=== PATIENT | male | born 1980 | race African-American/Black ===

== ENCOUNTER 2018-04-01 11:02 | Observation (INO) | payer BC ==
[2018-04-01 11:31] LABS: Absolute Lymphocytes (CBC) 1.5 K/uL (0.7-4.9); Absolute Monocytes 0.9 K/uL (0.1-1.3); Absolute Neutrophil 4.6 K/uL (1.8-8.0); Basophils % 0.9 % (0-1.3); Eosinophils % 10.5 % (0-4.4); Hematocrit 45.9 % (39.6-49.0); Lymphocytes % 19.6 % (15.3-44.8); MCV 92.1 fL (80-100); MPV 8.3 fL (7.6-11.3); Monocytes % 10.8 % (3.3-12.3); RBC Red Blood Cell Count 4.99 M/uL (4.33-5.43)
[2018-04-01 11:53] LABS: BUN Blood Urea Nitrogen 9 mg/dL (7-18); Bicarbonate 27 mmol/L (21-32); CKMB Creatine Kinase MB 3.7 ng/mL (0.3-3.6); Creatine Phosphokinase 418 U/L (39-308); Glucose Level 105 mg/dL (74-106); Magnesium 2.4 mg/dL (1.8-2.4); NT PRO-BNP 19 pg/mL (<125); Potassium 3.8 mmol/L (3.5-5.1); Sodium Level 140 mmol/L (136-145); Troponin (Emerg Dept Use Only) < 0.02 ng/mL (0.0-0.045)
[2018-04-01] MEDS ORDERED: MORPHINE 4 MG/ML SYR ONE (12:06)
[2018-04-01] MEDS ORDERED: ONDANSETRON 4 MG/2 ML VIAL ONE (12:06)
--- NOTE | 2018-04-01 12:06 | RAD REPORT ---
EXAM DESCRIPTION: Jarrod Single View04/01/2018 11:39 am CLINICAL HISTORY: PALPITATIONS COMPARISON: none FINDINGS: The lungs appear clear of acute infiltrate. The heart is normal size IMPRESSION: No acute abnormalities displayed
[2018-04-01 12:40] LABS: Protime INR 1.02
--- NOTE | 2018-04-01 12:45 | EDPHYS ---
Physician Documentation [facility] Name: Willie Cook Age: 37 yrs Sex: Male : 1980 Arrival Date: 04/01/2018 Time: 11:04 Bed 2 Private MD: ED Physician Kennedy Ortiz HPI: 04/01 12:21 This 37 yrs old Black Male presents to ER via EMS with complaints of Palpitations. kb 12:21 The patient presents with a history of heart racing. Context: The symptoms occur at kb rest. Onset: The symptoms/episode began/occurred 30 minute(s) ago. Duration: The patient or guardian reports a single episode. Modifying factors: The symptoms are aggravated by nothing. The symptoms are alleviated by nothing. Associated signs and symptoms: Pertinent positives: SOB, Pertinent negatives: anxiety, chest pain, cough, fever, lightheadedness, nausea, syncope, near-syncope, unusual stressors, vertigo, vomiting. Severity of symptoms: At their worst the symptoms were moderate in the emergency department the symptoms have improved. The patient has not experienced similar symptoms in the past. The patient has not recently seen a physician. Historical: - Allergies: 11:06 No Known Allergies; ss - Home Meds: 11:06 None [Active]; ss - PMHx: 11:06 None; ss - PSHx: 11:06 None; ss - Immunization history:: Adult Immunizations up to date. - Social history:: Smoking status: Patient/guardian denies using tobacco. - Ebola Screening: : Patient denies exposure to infectious person Patient denies travel to an Ebola-affected area in the 21 days before illness onset. ROS: 12:17 Constitutional: Negative for fever, chills, and weight loss, Eyes: Negative for injury, kb pain, redness, and discharge, ENT: Negative for injury, pain, and discharge, Neck: Negative for injury, pain, and swelling, Abdomen/GI: Negative for abdominal pain, nausea, vomiting, diarrhea, and constipation, Back: Negative for injury and pain, : Negative for injury, bleeding, discharge, and swelling, MS/Extremity: Negative for injury and deformity, Skin: Negative for injury, rash, and discoloration, Neuro: Negative for headache, weakness, numbness, tingling, and seizure. 12:17 Cardiovascular: Positive for palpitations, Negative for chest pain, edema, orthopnea, paroxysmal nocturnal dyspnea. 12:17 Respiratory: Positive for shortness of breath, Negative for cough, dyspnea on exertion, hemoptysis, orthopnea, pleurisy, sputum production, wheezing. Exam: 12:21 Constitutional: This is a well developed, well nourished patient who is awake, alert, kb and in no acute distress. Head/Face: Normocephalic, atraumatic. Eyes: Pupils equal round and reactive to light, extra-ocular motions intact. Lids and lashes normal. Conjunctiva and sclera are non-icteric and not injected. Cornea within normal limits. Periorbital areas with no swelling, redness, or edema. ENT: Nares patent. No nasal discharge, no septal abnormalities noted. Tympanic membranes are normal and external auditory canals are clear. Oropharynx with no redness, swelling, or masses, exudates, or evidence of obstruction, uvula midline. Mucous membranes moist. Neck: Trachea midline, no thyromegaly or masses palpated, and no cervical lymphadenopathy. Supple, full range of motion without nuchal rigidity, or vertebral point tenderness. No Meningismus. Chest/axilla: Normal chest wall appearance and motion. Nontender with no deformity. No lesions are appreciated. Cardiovascular: Regular rate and rhythm with a normal S1 and S2. No gallops, murmurs, or rubs. Normal PMI, no JVD. No pulse deficits. Respiratory: Lungs have equal breath sounds bilaterally, clear to auscultation and percussion. No rales, rhonchi or wheezes noted. No increased work of breathing, no retractions or nasal flaring. Abdomen/GI: Soft, non-tender, with normal bowel sounds. No distension or tympany. No guarding or rebound. No evidence of tenderness throughout. Skin: Warm, dry with normal turgor. Normal color with no rashes, no lesions, and no evidence of cellulitis. MS/ Extremity: Pulses equal, no cyanosis. Neurovascular intact. Full, normal range of motion. Neuro: Awake and alert, GCS 15, oriented to person, place, time, and situation. Cranial nerves II-XII grossly intact. Motor strength 5/5 in all extremities. Sensory grossly intact. Cerebellar exam normal. Normal gait. Vital Signs: 11:06 BP 149 / 84; Pulse 90; Resp 16; Pulse Ox 100% on R/A; Weight 74.84 kg; Height 6 ft. 1 ss in. (185.42 cm); Pain 0/10; 12:07 BP 150 / 83; Pulse 94; Resp 16; Pulse Ox 100% on R/A; la1 12:27 BP 135 / 83 Supine; Pulse 90; jb1 12:27 BP 140 / 77 Sitting; Pulse 95; jb1 12:27 BP 144 / 90 Standing; Pulse 100; jb1 12:55 BP 137 / 83; Pulse 77; Resp 16; Pulse Ox 100% on R/A; la1 13:28 BP 138 / 71; Pulse 83; Resp 16; Pulse Ox 100% on R/A; la1 11:06 Body Mass Index 21.77 (74.84 kg, 185.42 cm) ss MDM: 11:06 Patient medically screened. kb 12:21 Data reviewed: vital signs, nurses notes. Data interpreted: Pulse oximetry: on room air kb is 100 %. Interpretation: normal. 12:37 Counseling: I had a detailed discussion with the patient and/or guardian regarding: the kb historical points, exam findings, and any diagnostic results supporting the discharge/admit diagnosis, lab results, radiology results, the need for further work-up and treatment in the hospital. 12:43 Physician consultation: Levi Crane MD was contacted at 12:44, regarding admission, kb to the telemetry unit. and will see patient in inpatient room. 04/01 11:10 Order name: Basic Metabolic Panel; Complete Time: 12:03 kb 04/01 11:10 Order name: CBC with Diff; Complete Time: 11:33 kb 04/01 11:10 Order name: Ckmb; Complete Time: 12:03 kb 04/01 11:10 Order name: CPK; Complete Time: 12:03 kb 04/01 11:10 Order name: Magnesium; Complete Time: 12:03 kb 04/01 11:10 Order name: NT PRO-BNP; Complete Time: 12:03 kb 04/01 11:10 Order name: PT-INR; Complete Time: 12:54 kb 04/01 11:10 Order name: Ptt, Activated; Complete Time: 12:54 kb 04/01 11:10 Order name: Troponin (emerg Dept Use Only); Complete Time: 12:03 kb 04/01 11:10 Order name: XRAY Chest (1 view); Complete Time: 12:07 kb 04/01 11:10 Order name: UDS 04/01 12:57 Order name: T3 Free; Complete Time: 13:39 EDND 04/01 12:57 Order name: T4 Free; Complete Time: 13:39 EDMS 04/01 12:58 Order name: Thyroid Stimulating Hormone; Complete Time: 13:39 EDND 04/01 11:10 Order name: EKG; Complete Time: 11:11 kb 04/01 11:10 Order name: Cardiac monitoring; Complete Time: 11:32 kb 04/01 11:10 Order name: EKG - Nurse/Tech; Complete Time: 11:32 kb 04/01 11:10 Order name: IV Saline Lock; Complete Time: 11:32 kb 04/01 11:10 Order name: Labs collected and sent; Complete Time: 11:32 kb 04/01 11:10 Order name: O2 Per Protocol; Complete Time: 11:32 kb 04/01 11:10 Order name: O2 Sat Monitoring; Complete Time: 11:32 kb 04/01 12:16 Order name: Orthostatic Blood Pressure; Complete Time: 12:28 la1 Administered Medications: 12:16 Not Given (Patient Refused): morphine 4 mg IVP once la1 12:16 Not Given (Patient Refused): Zofran 4 mg IVP once; over 2 minutes la1 Disposition: 14:22 Co-signature as Attending Physician, Kennedy Ortiz MD I agree with the assessment and kdr plan of care. Disposition: 04/01/18 12:44 Hospitalization ordered by Levi Crane for Observation. Preliminary diagnosis are Chest pain, unspecified, Palpitations. - Bed requested for Telemetry/MedSurg (observation). - Status is Observation. ss - Condition is Stable. - Problem is new. - Symptoms have improved. UTI on Admission? No Signatures: Dispatcher [employer] [facility] Regla Gillis, MAICOL-Chayito MILIAN-Kennedy Courtney MD MD [facility] Tika Brush RN RN Sonu Reyes RN RN la1 Tamanna Schulz Corrections: (The following items were deleted from the chart) 12:22 12:17 Cardiovascular: Positive for chest pain, Negative for edema, orthopnea, kb palpitations, paroxysmal nocturnal dyspnea, kb 13:14 12:44 Hospitalization Ordered by Levi Crane MD for Observation. Preliminary eb diagnosis is Chest pain, unspecified; Palpitations. Bed requested for Telemetry/MedSurg (observation). Status is Observation. Condition is Stable. Problem is new. Symptoms have improved. UTI on Admission? No. kb 14:16 13:14 04/01/2018 12:44 Hospitalization Ordered by Levi Crane MD for Observation. ss Preliminary diagnosis is Chest pain, unspecified; Palpitations. Bed requested for Telemetry/MedSurg (observation). Status is Observation. Condition is Stable. Problem is new. Symptoms have improved. UTI on Admission? No. eb
--- NOTE | 2018-04-01 12:45 | ER ---
Nurse's Notes [facility] Name: Willie Cook Age: 37 yrs Sex: Male : 1980 Arrival Date: 04/01/2018 Time: 11:04 Bed 2 Private MD: Diagnosis: Chest pain, unspecified;Palpitations Presentation: 04/01 11:05 Presenting complaint: Patient states: Patient reports he was sitting in a truck at work ss and suddenly felt palpitations with intermittent shortness of breath. HR is 90 on arrival and en route to ER. Transition of care: patient was not received from another setting of care. Onset of symptoms was April 01, 2018. Risk Assessment: Do you want to hurt yourself or someone else? Patient reports no desire to harm self or others. Initial Sepsis Screen: Does the patient meet any 2 criteria? No. Patient's initial sepsis screen is negative. Does the patient have a suspected source of infection? No. Patient's initial sepsis screen is negative. Care prior to arrival: None. 11:05 Method Of Arrival: EMS: [facility] ss 11:05 Acuity: MESSI 3 ss Historical: - Allergies: 11:06 No Known Allergies; ss - Home Meds: 11:06 None [Active]; ss - PMHx: 11:06 None; ss - PSHx: 11:06 None; ss - Immunization history:: Adult Immunizations up to date. - Social history:: Smoking status: Patient/guardian denies using tobacco. - Ebola Screening: : Patient denies exposure to infectious person Patient denies travel to an Ebola-affected area in the 21 days before illness onset. Screenin:31 Abuse screen: Denies threats or abuse. Nutritional screening: No deficits noted. la1 Tuberculosis screening: No symptoms or risk factors identified. Fall Risk None identified. Assessment: 11:30 General: Appears in no apparent distress. Behavior is calm, cooperative. Pain: Denies la1 pain. Neuro: Level of Consciousness is awake, alert, obeys commands, Oriented to person, place, time, situation. Cardiovascular: Denies chest pain, shortness of breath, Heart tones S1 S2 present Capillary refill < 3 seconds Patient's skin is warm and dry. Rhythm is sinus rhythm. Respiratory: Airway is patent Respiratory effort is even, unlabored, Respiratory pattern is regular, symmetrical, Breath sounds are clear bilaterally. GI: No signs and/or symptoms were reported involving the gastrointestinal system. : No signs and/or symptoms were reported regarding the genitourinary system. 12:06 Reassessment: PT walked to bathroom, upon returning to room states he is light headed la1 and had near syncopal episode, also began C/O chest pain, ERP notified, EKG completed, Pt placed back on monitor. States sy have resolved fully. 12:55 Reassessment: Patient appears in no apparent distress at this time. No changes from la1 previously documented assessment. Patient and/or family updated on plan of care and expected duration. Pain level reassessed. Patient is alert, oriented x 3, equal unlabored respirations, skin warm/dry/pink. 14:14 Reassessment: Patient appears in no apparent distress at this time. Patient and/or ss family updated on plan of care and expected duration. Pain level reassessed. Patient is alert, oriented x 3, equal unlabored respirations, skin warm/dry/pink. Vital Signs: 11:06 BP 149 / 84; Pulse 90; Resp 16; Pulse Ox 100% on R/A; Weight 74.84 kg; Height 6 ft. 1 ss in. (185.42 cm); Pain 0/10; 12:07 BP 150 / 83; Pulse 94; Resp 16; Pulse Ox 100% on R/A; la1 12:27 BP 135 / 83 Supine; Pulse 90; jb1 12:27 BP 140 / 77 Sitting; Pulse 95; jb1 12:27 BP 144 / 90 Standing; Pulse 100; jb1 12:55 BP 137 / 83; Pulse 77; Resp 16; Pulse Ox 100% on R/A; la1 13:28 BP 138 / 71; Pulse 83; Resp 16; Pulse Ox 100% on R/A; la1 11:06 Body Mass Index 21.77 (74.84 kg, 185.42 cm) ED Course: 11:00 EKG done, by ED staff, reviewed by Regla JO. jb1 11:04 Patient arrived in ED. ss 11:06 Triage completed. ss 11:06 Regla Gillis FNP-C is [facility]. kb 11:06 Kennedy Ortiz MD is Attending Physician. kb 11:06 Arm band placed on right wrist. ss 11:30 Sonu Paige, RN is Primary Nurse. la1 11:31 Placed in gown. Bed in low position. Call light in reach. air sampling and monitoring on. Pulse ox la1 on. NIBP on. 11:31 No provider procedures requiring assistance completed. Inserted saline lock: 20 gauge la1 in right antecubital area, using aseptic technique. Blood collected. 11:36 X-ray completed. Portable x-ray completed in exam room. Patient tolerated procedure ml well. 11:38 XRAY Chest (1 view) In Process Unspecified. EDMS 12:11 EKG done, by ED staff, reviewed by Regla JO. jb1 12:44 Oc Crane MD is Hospitalizing Provider. kb 12:44 Hospitalizing Provider role handed off by Oc Crane MD kb 12:44 Levi Crane MD is Hospitalizing Provider. kb 13:28 Patient admitted, IV remains in place. la1 Administered Medications: 12:16 Not Given (Patient Refused): morphine 4 mg IVP once la1 12:16 Not Given (Patient Refused): Zofran 4 mg IVP once; over 2 minutes la1 Outcome: 12:44 Decision to Hospitalize by Provider. kb 14:14 Admitted to Tele accompanied by tech, family with patient, via wheelchair, room 202, ss report called to HONORIO Arevalo. 14:14 Condition: good 14:14 Instructed on the need for admit. 14:16 Patient left the ED. ss Signatures: Dispatcher [employer] EDMS Filiberto Terry jb1 Regla Gillis FNP-C FNP-Ckb Lopez, Melissa ml Smirch, Shelby, RN RN ss Sonu Paige, HONORIO RN la1
[2018-04-01 13:35] LABS: T3 Free 2.88 pg/mL (2.18-3.98); Thyroid Stimulating Hormone 1.23 uIU/mL (0.360-3.740)
[2018-04-01] MEDS ORDERED: METOPROLOL TARTRATE 5 MG/5 ML INJ IV PRN (14:54)
--- NOTE | 2018-04-01 14:56 | P.OBGYNHP ---
Certification for Inpatient With expected LOS: <2 Midnights Patient will require the following post-hospital care: None Practitioner: I am a practitioner with admitting privileges, knowledge of patient current condition, hospital course, and medical plan of care. Services: Services provided to patient in accordance with Admission requirements found in Title 42 Section 412.3 of the Code of Federal Regulations Patient History Date of Service: 04/01/18 Reason for admission: Palpitations History of Present Illness: Patient is 37 years of age no medical history admitted with sudden onset of palpitations this was while he was at work he denies any prior history of Eddie petition no cardiac history does not take any medications or drugs was not quite recovered yet still feels that he has an irregular heart rate denies any shortness of breath Allergies No Known Allergies Allergy (Unverified 04/01/18 13:31) Home Medications: NK [No Home Meds] 04/01/18 Review of Systems 10-point ROS is otherwise unremarkable Physical Examination - Vital Signs Blood Pressure: 138/71 Pulse: 83 Respirations: 16 - General General: Alert and in no apparent distress, Oriented x3 HEENT: Atraumatic Neck: Supple, 2+ carotid pulse no bruit Respiratory: Clear to auscultation bilaterally, Normal air movement Cardiovascular: No edema, Normal pulses, Regular rate/rhythm, Normal S1 S2 Breasts: Normal configuration Gastrointestinal: Normal bowel sounds, Soft and benign Laboratory Data (last 24 hrs) 04/01/18 11:15: PT 12.0, INR 1.02, APTT 27.0 04/01/18 11:15: WBC 7.9, Hgb 15.5, Hct 45.9, Plt Count 317 04/01/18 11:15: Sodium 140, Potassium 3.8, BUN 9, Creatinine 1.00, Glucose 105, Magnesium 2.4 Assessment and Plan - Problems (Diagnosis) (1) Palpitation Current Visit: Yes Status: Acute Plan: Patient is 37 years of age admitted with sudden onset of palpitations no prior medical history labs are normal heart function tests is normal plan to observe telemetry 2D echo cardiology Consul - Advance Directives Does patient have a Living Will: No Does patient have a Durable POA for Healthcare: No
[2018-04-01 15:46] LABS: Barbiturates NEGATIVE (NEGATIVE); Benzodiazepines NEGATIVE (NEGATIVE); Cocaine NEGATIVE (NEGATIVE); METHAMPHETAM NEGATIVE (NEGATIVE); Methadone NEGATIVE (NEGATIVE); Opiates NEGATIVE (NEGATIVE); Phencyclidine NEGATIVE (NEGATIVE); THC Cannibis NEGATIVE (NEGATIVE)
[2018-04-01 16:21] LABS: Urine Appearance CLEAR; Urine Bilirubin NEGATIVE (NEG); Urine Blood NEGATIVE (NEG); Urine Color YELLOW; Urine Glucose NEGATIVE (NEG); Urine Protein NEGATIVE (NEG); Urine pH 6.5 (5.0-7.0)
[2018-04-01 19:45] LABS: Urine Microscopic Reflex NO UMIC
--- NOTE | 2018-04-02 07:56 | EKG ---
Test Date: 2018-04-01 Test Time: 11:06:11 Panel Saw Operator: CHANTE MEASUREMENT RESULTS: Intervals: Rate: 85 IN: 154 QRSD: 96 QT: 344 QTc: 409 [place]: P: 80 IN: 154 QRS: 34 T: 40 INTERPRETIVE STATEMENTS: Normal sinus rhythm Minimal voltage criteria for LVH, may be normal variant Borderline ECG No previous ECG available for comparison Electronically Signed On 04-02-18 07:55:01 CDT by Freddy Richardson
--- NOTE | 2018-04-02 11:56 | DS ---
Date of Discharge: 04/02/2018 Discharge Diagnoses: 1. Palpitations. 2. Chest tightness, atypical chest pain. 3. Rhabdomyolysis, nontraumatic. 4. Acute dehydration. Hospital Course: The patient is a 37-year-old male, comes in with no significant past medical history, complaining of some palpitations while at work. No cardiac history. Denies any illicit drugs. His workup revealed a clear chest x-ray. His EKG showed normal sinus rhythm. He was placed on cardiac telemetry. No further arrhythmias found on telemetry. He did meet some minimal voltage criteria for LVH, which may be a normal variant. The patient otherwise was doing well. His blood pressure was stable. His heart rate was normal, did not complain of any further chest tightness or palpitations. Symptoms had resolved. Workup including electrolytes and TSH level were normal. He did have elevated CK level and he was treated symptomatically. The patient's UDS was negative. Echocardiogram completed. The patient was then cleared for discharge and sent home in a stable condition. Activity: As tolerated. Medications: As per medication reconciliation list. Followup: Establish care with the PCP in 1 week. Return to ER for worsening condition. Physical Examination: General: Awake, alert, oriented x3. No acute distress. CV: S1, S2. No murmurs. Regular rate and rhythm. Peripheral pulses present. Respiratory: Moving air well bilaterally. No wheezing. Gastrointestinal: Abdomen is soft, nontender, nondistended. Positive bowel sounds. Extremities: No clubbing, cyanosis, edema. Neurologic: Nonfocal. SA/MODL Voice ID: [id number] Report ID: [id number] [facility]ENTER[facility]iana
--- NOTE | 2018-04-03 07:11 | EKG ---
Test Date: 2018-04-01 Test Time: 11:59:17 Instructional Manager: CHANTE MEASUREMENT RESULTS: Intervals: Rate: 102 VA: 142 QRSD: 86 QT: 328 QTc: 427 [place]: P: 79 VA: 142 QRS: 12 T: 36 INTERPRETIVE STATEMENTS: Sinus tachycardia Minimal voltage criteria for LVH, may be normal variant Borderline ECG Compared to ECG 04/01/2018 11:06:11 Sinus rhythm no longer present Electronically Signed On 04-03-18 07:09:37 CDT by Freddy Richardson
--- NOTE | 2018-04-03 09:00 | ECHO ---
HEIGHT: 6 ft 0 in WEIGHT: 170 lb 2 oz DATE OF STUDY: 04/02/[address]: Levi Crane MD 2-DIMENSIONAL: YES M.MODE: YES DOPPLER: YES COLOR FLOW: YES TDS: PORTABLE: DEFINITY: BUBBLE STUDY: DIAGNOSIS: CHEST PAIN CARDIAC HISTORY: CATHERIZATION: NO SURGERY: NO PROSTHETIC VALVE: NO PACEMAKER: NO MEASUREMENTS (cm) DIASTOLIC (NORMALS) SYSTOLIC (NORMALS) IVSd 1.1 (0.6-1.2) LA Diam 2.8 (1.9-4.0) LVEF 53% LVIDd 5.3 (3.5-5.7) LVIDs 3.8 (2.0-3.5) %FS 28% LVPWd 1.1 (0.6-1.2) Ao Diam 2.8 (2.0-3.7) 2 DIMENSIONAL ASSESSMENT: RIGHT ATRIUM: NORMAL LEFT ATRIUM: NORMAL RIGHT VENTRICLE: NORMAL LEFT VENTRICLE: NORMAL TRICUSPID VALVE: NORMAL MITRAL VALVE: MITRAL VALVE PROLAPSE PULMONIC VALVE: NORMAL AORTIC VALVE: NORMAL PERICARDIAL EFFUSION: NONE AORTIC ROOT: NORMAL LEFT VENTRICULAR WALL MOTION: NORMAL DOPPLER/COLOR FLOW: NORMAL COMMENTS: MITRAL VALVE PROLAPSE. NORMAL LEFT VENTRICULAR EJECTION FRACTION AND SIZE. NO WALL MOTION ABNORMALITY. NO EFFUSION. TECHNOLOGIST: TORI CHAMBERS
== END 2018-04-02 16:42 | disposition home or self-care (01) ==
LOC: ER 11:02 → SUPCPDRO 11:02 → ERHOLD 12:45 → 2ND 14:10
PROVIDERS: ADMIT Internal Medicine Sleep Medicine; ATTEND Internal Medicine Sleep Medicine
DX: R00.2 Palpitations (principal); R07.89 Other chest pain; M62.82 Rhabdomyolysis; E86.0 Dehydration
CPT/HCPCS: 36415; 71045; 80048; 80307; 81003; 82550; 82553; 83735; 83880; 84439; 84443; 84481; 84484; 85025; 85610; 85730; 93005; 93306; 99285; G0378; J2405